=== PATIENT | male | born 1990 | race Two or more races ===

== ENCOUNTER 2025-02-21 15:34 | Inpatient (IN) | payer MEDICAID ==
[~2025-02-21] VITALS: Ht 170.2 cm; Wt 104.0 kg
[2025-02-21 16:51] LABS: PLATELET COUNT (AUTO) 98 K/uL (150-450); RED BLOOD CELL COUNT(AUTO) 4.57 MIL/uL (4.50-5.90); RED CELL DISTRIBUTION WIDTH 15.7 % (11.5-14.5); WHITE BLOOD COUNT (AUTO) 7.2 K/uL (4.5-11.0)
[2025-02-21 17:04] LABS: CALCIUM, TOTAL 8.2 mg/dL (8.8-10.5); CREATININE 1.34 mg/dL (0.60-1.30); GLOMERULAR FILTR. RATE CALC > 60 mL/min (>60); GLUCOSE,RANDOM 98 mg/dL (70-110); SODIUM SERUM 140 mmol/L (136-145); UREA NITROGEN, BLOOD 8 mg/dL (7-18)
[2025-02-21 17:26] LABS: COVID AG,FIA SOURCE NASAL SWAB
[2025-02-21 17:46] LABS: SARS-COV2 (COVID) ANTIGEN,FIA Negative (Negative)
[2025-02-21 18:29] LABS: APPEARANCE,URINE CLEAR (CLEAR); GLUCOSE, URINE (UA) NEGATIVE (NEGATIVE); LEUKOCYTE ESTERASE ,URINE NEGATIVE (NEGATIVE); NITRATE,URINE NEGATIVE (NEGATIVE); OCCULT BLOOD,URINE TRACE (NEGATIVE); SPECIFIC GRAVITIY, URINE 1.008 (1.003-1.030)
[2025-02-21 18:35] LABS: AMPHET/METH SCREEN,URINE NEGATIVE (NEGATIVE); BARBITURATE SCREEN, URINE NEGATIVE (NEGATIVE); CANNABINOID SCREEN,URINE NEGATIVE (NEGATIVE); COCAINE SCREEN,URINE NEGATIVE (NEGATIVE); METHADONE SCREEN, URINE NEGATIVE (NEGATIVE)
[2025-02-21 18:36] LABS: ALCOHOL, URINE DRUG SCREEN POSITIVE (NEGATIVE); PH,URINE DRUG SCREEN 6.0 (5.0-8.0)
[2025-02-21 18:43] LABS: SQUAMOUS EPITHELIAL CELL,UR Rare /LPF (None Seen)
[2025-02-21] MEDS: ZOLPIDEM TARTRATE 10 MG TABLET PO PRN (22:12)
[2025-02-21 23:25] VITALS: BP 176/100; PULSE 108; RESP 18; TEMP 97.5; O2SAT 100
[2025-02-22] MEDS ORDERED: INFLUENZA VIRUS VACCINE TVS (6MO+) 2025-26/PF 45 MCG/0.5 ML SYRINGE IM. ONE (00:30)
[2025-02-22] MEDS ORDERED: LOPERAMIDE HCL 2 MG CAPSULE PO PRN (04:45)
[2025-02-22] MEDS ORDERED: ALBUTEROL SULFATE HFA 90 MCG/PUFF 8 GM INHALER IH PRN (04:45)
[2025-02-22] MEDS ORDERED: ONDANSETRON 4 MG TABLET PO PRN (04:45)
[2025-02-22] MEDS ORDERED: ACETAMINOPHEN 325 MG TABLET PO PRN (04:45)
[2025-02-22] MEDS ORDERED: OMEPRAZOLE 20 MG CAPSULE PO PRN (04:45)
[2025-02-22] MEDS ORDERED: DOCUSATE SODIUM 100 MG CAPSULE PO PRN (04:45)
[2025-02-22] MEDS ORDERED: BACITRACIN 28 GM OINTMENT TP PRN (04:45)
[2025-02-22] MEDS ORDERED: MAGNESIUM HYDROXIDE SUSPENSION 30 ML UDCUP PO PRN (04:45)
[2025-02-22] MEDS ORDERED: BENZOCAINE/MENTHOL [CEPACOL] LOZENGE PO PRN (04:45)
[2025-02-22] MEDS ORDERED: MAG HYDROX/ALUMINUM HYD/SIMETH ES 30 ML SUSPENSION UDCUP PO PRN (04:45)
[2025-02-22] MEDS ORDERED: PETROLATUM,WHITE 28 GM JELLY TP PRN (04:45)
[2025-02-22 10:47] VITALS: BP 123/83; PULSE 103; RESP 18; TEMP 98.1; O2SAT 95
[2025-02-22] MEDS: CYANOCOBALAMIN 1,000 MCG/ML VIAL IM ONE (14:06)
[2025-02-22] MEDS: MULTIVITAMINS WITH MINERALS, THERAPEUTIC TABLET PO SCH (14:07)
[2025-02-22] MEDS: FOLIC ACID 1 MG TABLET PO SCH (14:07)
[2025-02-22] MEDS: ESCITALOPRAM OXALATE 10 MG TABLET PO SCH (14:11)
[2025-02-22 14:19] VITALS: BP 146/69; PULSE 94; RESP 18; TEMP 97.3; O2SAT 98
[2025-02-22] MEDS: THIAMINE 100 MG TABLET PO SCH (16:46)
[2025-02-22 20:49] VITALS: BP 146/89; PULSE 97; RESP 18; TEMP 98.1; O2SAT 97
[2025-02-23 05:07] VITALS: BP 148/84; PULSE 93; RESP 18; O2SAT 98
[2025-02-23 09:44] VITALS: BP 143/97; PULSE 72; RESP 16; TEMP 98.5; O2SAT 95
[2025-02-23 13:31] VITALS: BP 158/90; PULSE 103; RESP 17; TEMP 97.4; O2SAT 97
[2025-02-23 21:00] VITALS: BP 154/98; PULSE 100; RESP 19; TEMP 98; O2SAT 98
[2025-02-23 21:29] VITALS: BP 154/98; PULSE 100; RESP 19; TEMP 98; O2SAT 98
[2025-02-24 08:27] LABS: RED BLOOD CELL COUNT(AUTO) 3.63 MIL/uL (4.50-5.90); RED CELL DISTRIBUTION WIDTH 15.6 % (11.5-14.5); WHITE BLOOD COUNT (AUTO) 2.4 K/uL (4.5-11.0)
[2025-02-24 08:32] LABS: PLATELET COUNT (AUTO) 69 K/uL (150-450)
[2025-02-24 08:55] LABS: ASPARTATE AMINOTRANSFERASE 76 U/L (15-37); CALCIUM, TOTAL 8.5 mg/dL (8.8-10.5); CHOL/HDL RATIO 2.3 (4.2-7.3); CREATININE 1.14 mg/dL (0.60-1.30); GLOMERULAR FILTR. RATE CALC > 60 mL/min (>60); GLUCOSE,RANDOM 102 mg/dL (70-110); LDL CHOL (CALC.) 70 mg/dL (0-130); PHOSPHORUS 3.2 mg/dL (2.5-4.9); SODIUM SERUM 137 mmol/L (136-145); TOTAL PROTEIN, SERUM 6.6 g/dL (6.4-8.2); UREA NITROGEN, BLOOD 14 mg/dL (7-18)
[2025-02-24 09:35] VITALS: BP 151/100; PULSE 101; RESP 18; TEMP 98.3; O2SAT 98
[2025-02-24] MEDS: FLUOCINONIDE 0.05% 15 GM CREAM TP SCH (12:07)
[2025-02-24 13:30] VITALS: BP 150/98; PULSE 98; RESP 18; TEMP 97.6; O2SAT 99
[2025-02-24 22:15] VITALS: BP 149/96; PULSE 100; RESP 18; TEMP 98; O2SAT 99
[2025-02-25 13:38] VITALS: BP 157/96; PULSE 77; RESP 16; TEMP 98.3; O2SAT 98
[2025-02-25 14:41] VITALS: BP 157/96; PULSE 77; RESP 18; TEMP 98.3; O2SAT 98
[2025-02-25 20:58] VITALS: BP 142/97; PULSE 83; RESP 18; TEMP 98.1; O2SAT 97
[2025-02-26 07:11] LABS: ASPARTATE AMINOTRANSFERASE 55 U/L (15-37); CALCIUM, TOTAL 8.1 mg/dL (8.8-10.5); CREATININE 1.15 mg/dL (0.60-1.30); GLOMERULAR FILTR. RATE CALC > 60 mL/min (>60); GLUCOSE,RANDOM 74 mg/dL (70-110); SODIUM SERUM 141 mmol/L (136-145); TOTAL PROTEIN, SERUM 6.6 g/dL (6.4-8.2); UREA NITROGEN, BLOOD 19 mg/dL (7-18)
[2025-02-26 09:31] VITALS: BP 131/83; PULSE 68; RESP 17; TEMP 98.8; O2SAT 99
[2025-02-26 20:37] VITALS: BP 144/86; PULSE 72; RESP 18; TEMP 98.1
[2025-02-27 13:16] VITALS: BP 130/80; PULSE 59; RESP 18; TEMP 98.9; O2SAT 97
[2025-02-27 21:16] VITALS: BP 127/72; PULSE 69; RESP 18; TEMP 98.9; O2SAT 98
[2025-02-28 12:05] VITALS: BP 127/87; PULSE 66; RESP 18; TEMP 98.8; O2SAT 97
[2025-02-28 20:43] VITALS: BP 139/98; PULSE 67; RESP 18; TEMP 98.1; O2SAT 97
[2025-03-01 11:55] VITALS: BP 129/82; PULSE 69; RESP 18; TEMP 97.7; O2SAT 98
[2025-03-01 20:17] VITALS: BP 110/61; PULSE 71; RESP 18; TEMP 98.1; O2SAT 96
[2025-03-02 09:52] VITALS: BP 130/85; PULSE 68; RESP 18; TEMP 97.8; O2SAT 100
[2025-03-02 20:49] VITALS: BP 138/83; PULSE 71; RESP 17; TEMP 98.2; O2SAT 97
[2025-03-03] MEDS: ESCITALOPRAM OXALATE 10 MG TABLET PO SCH (10:38)
[2025-03-03 13:38] VITALS: BP 135/89; PULSE 68; RESP 17; TEMP 97.8
[2025-03-03 20:38] VITALS: BP 147/89; PULSE 65; RESP 18; TEMP 98.4; O2SAT 98
[2025-03-03] MEDS: ZOLPIDEM TARTRATE 10 MG TABLET PO PRN (21:02)
[2025-03-04] MEDS ORDERED: ESCI-8 PO (08:27)
[2025-03-04] MEDS ORDERED: FLUO15CR41 TP (08:27)
== END 2025-03-04 10:15 | DRG 751 ==
LOC: EMS 15:34 → 3EI 21:38 → EMS 21:38 → 3EI 21:50
PROVIDERS: ADMIT Psychiatry & Neurology Psychiatry; ATTEND Psychiatry & Neurology Psychiatry
PROC: GZHZZZZ Group Psychotherapy (ICD-10-PCS; principal; 2025-02-22)
PROC: GZ52ZZZ Individual Psychotherapy, Cognitive (ICD-10-PCS; 2025-02-25)
DX: F33.2 Major depressive disorder, recurrent severe without psychotic features (principal); K74.60 Unspecified cirrhosis of liver; R45.851 Suicidal ideations; D64.9 Anemia, unspecified; F10.20 Alcohol dependence, uncomplicated; F41.1 Generalized anxiety disorder; E86.0 Dehydration; G62.9 Polyneuropathy, unspecified; G47.00 Insomnia, unspecified; I10 Essential (primary) hypertension; Y90.8 Blood alcohol level of 240 mg/100 ml or more; Z20.822 Contact with and (suspected) exposure to COVID-19; Z79.899 Other long term (current) drug therapy; Z87.891 Personal history of nicotine dependence; Z88.6 Allergy status to analgesic agent; L40.9 Psoriasis, unspecified
CPT/HCPCS: 80048; 80053; 80061; 80307; 81001; 83036; 83735; 84100; 84443; 85025; 99285; G0480; J3420